=== PATIENT | female | born 1990 | race Asian ===

== ENCOUNTER 2017-03-08 19:30 | Emergency (ER) | payer OTHER ==
[~2017-03-08] VITALS: Ht 172.7 cm; Wt 97.5 kg
[2017-03-08 19:38] VITALS: TEMP 98.6
[2017-03-08 20:16] LABS: PLATELET COUNT 269 K/uL (152-353)
[2017-03-08 20:50] LABS: POTASSIUM 3.8 mmol/L (3.6-5.2); SODIUM 136 mmol/L (136-145)
[2017-03-08 21:31] VITALS: BP 140/89
== END 2017-03-08 21:31 | disposition home or self-care (01) ==
LOC: ED 19:30
DX: O99.011 Anemia complicating pregnancy, first trimester (principal); R53.1 Weakness
CPT/HCPCS: 36415; 80053; 81000; 84702; 85027; 99284